=== PATIENT | male | born 1990 | race American Indian/Alaskan Native ===

== ENCOUNTER 2016-10-07 03:18 | Emergency (ER) | payer SELFPAY ==
[2016-10-07 06:31] VITALS: BP 109/63
[2016-10-07 12:21] LABS: Anion Gap 17 mmol/L; BUN/Creatinine Ratio 12.22; Blood Urea Nitrogen 11 mg/dL (9-20); Calcium 8.5 mg/dL (8.4-10.2); Carbon Dioxide 27 mmol/L (22-30); Chloride 103.6 mmol/L (98-107); Glucose 112 mg/dL (75-100); Potassium 4.2 mmol/L (3.6-5.0); Sodium 143 mmol/L (137-145)
--- NOTE | 2016-10-08 14:49 | ED Elopement Review ---
ED Pt Elopement review - Results review Lab results: Laboratory Tests 10/07/16 04:10 Sodium 143 Potassium 4.2 Chloride 103.6 Carbon Dioxide 27 Anion Gap 17 BUN 11 Creatinine 0.9 Estimated GFR > 60 BUN/Creatinine Ratio 12.22 Glucose 112 H Calcium 8.5 - Call Back decision Pt Call Back Decision: No action required
== END 2016-10-07 03:25 | disposition left against medical advice (07) ==
LOC: ED 03:18
DX: R10.9 Unspecified abdominal pain (principal); Z53.21 Procedure and treatment not carried out due to patient leaving prior to being seen by health care provider
CPT/HCPCS: 36415; 80048